=== PATIENT | male | born 1940 | race African-American/Black ===

== ENCOUNTER 2018-04-16 21:47 | Emergency (ER) | payer MEDICARE ==
[~2018-04-16] VITALS: Ht 177.8 cm; Wt 96.4 kg
[~2018-04-16 21:47] MED LIST: ASPI81TA87 PO; BIMA12.5OS OS; FELO5ER PO; LEVO100 PO; PRAV40TA4 PO; VALS1TAB81 PO
[2018-04-16 22:14] VITALS: BP 152/74
== END 2018-04-16 22:39 | disposition home or self-care (01) ==
LOC: EMS 22:21
DX: H40.9 Unspecified glaucoma (principal); Z76.0 Encounter for issue of repeat prescription; H54.40 Blindness, one eye, unspecified eye; I25.10 Atherosclerotic heart disease of native coronary artery without angina pectoris; E78.00 Pure hypercholesterolemia, unspecified; I10 Essential (primary) hypertension; E03.9 Hypothyroidism, unspecified; I25.2 Old myocardial infarction; F17.210 Nicotine dependence, cigarettes, uncomplicated; Z88.5 Allergy status to narcotic agent; Z79.82 Long term (current) use of aspirin; Z79.899 Other long term (current) drug therapy
CPT/HCPCS: 99283